=== PATIENT | female | born 1990 | race Caucasian/White ===

== ENCOUNTER 2018-04-07 13:37 | Emergency (ER) | payer OTHER ==
[2018-04-07 14:19] VITALS: BP 105/65
--- NOTE | 2018-04-07 15:04 | UC ---
Throat Pain/Nasal Baldo HPI - HPI Summary HPI Summary: 27 y/o female presents to the urgent care c/o sore throat since yesterday. Pt reports this morning sore throat has worsen, pain w/ swallowing is 6/10 associated w/ mild body aches and mild MCDONNELL. Pt has not taking anything to alleviate symptoms. Pt denies fever,rash, SOB, chest pain, abdominal pain, N/v /D. Denies Hx of tick bites. - History of Current Complaint Chief Complaint: UCRespiratory Stated Complaint: SORE THROAT,BODYACHES Time Seen by Provider: 04/07/18 15:03 Hx Obtained From: Patient Hx Last Menstrual Period: 03/14/18 Onset/Duration: Gradual Onset, Lasting Days - 1 day, Still Present, Worse Since - today Severity: Mild Pain Intensity: 6 Pain Scale Used: 0-10 Numeric Cough: None Associated Signs & Symptoms: Positive: Dysphagia. Negative: Nasal Discharge, Fever Related History: Seasonal Allergies - Epiglottits Risk Factors Epiglottis Risk Factors: Negative - Allergies/Home Medications Allergies/Adverse Reactions: Allergies Allergy/AdvReac Type Severity Reaction Status Date / Time bacitracin Allergy Rash Verified 04/07/18 14:19 [From Neosporin ([id number])] neomycin Allergy Rash Verified 04/07/18 14:19 [From Neosporin ([id number])] Penicillins Allergy Rash Verified 04/07/18 14:19 polymyxin B Allergy Rash Verified 04/07/18 14:19 [From Neosporin ([id number])] PMH/Surg Hx/FS Hx/Imm Hx Previously Healthy: Yes - Pt denies PMHX - Surgical History Surgical History: None - Family History Known Family History: Positive: Diabetes Family History: Dyslipidemia - Social History Occupation: Employed Full-time Lives: With Family Alcohol Use: Rare Substance Use Type: None Smoking Status (MU): Never Smoked Tobacco Review of Systems Constitutional: Negative, Other - body aches Skin: Negative Eyes: Negative ENT: Sore Throat, Nasal Discharge - clear Respiratory: Negative Cardiovascular: Negative Gastrointestinal: Negative Genitourinary: Negative Motor: Negative Neurovascular: Negative Musculoskeletal: Negative Neurological: Headache - mild Psychological: Negative Is Patient Immunocompromised?: No All Other Systems Reviewed And Are Negative: Yes Physical Exam - Summary Physical Exam Summary: VITAL SIGNS: Reviewed. GENERAL: Patient is a well developed and nourished female who is sitting comfortable in the examining table. Patient is not in any acute respiratory distress. HEAD AND FACE: No signs of trauma. No ecchymosis, hematomas or skull depressions. No sinus tenderness. EYES: PERRLA, EOMI x 2, No injected conjunctiva, no nystagmus. No photophobia. EARS: Hearing grossly intact. Ear canals and tympanic membranes are within normal limits. MOUTH: Positive pharynx with erythema, no exudates, palatal petechiae. Mild B/L tonsillar enlargement with no exudate. Uvula in midline. NECK: Supple, trachea is midline, Positive anterior cervical lymphadenopathy, no JVD, no carotid bruit, no c-spine tenderness, neck with full ROM. No meningeal signs, no Kernig's or brudzinskis signs. CHEST: Symmetric, no tenderness at palpation LUNGS: Clear to auscultation bilaterally. No wheezing or crackles. CVS: Regular rate and rhythm, S1 and S2 present, no murmurs or gallops appreciated. ABDOMEN: Soft, non-tender. No signs of distention. No rebound no guarding, and no masses palpated. Bowel sounds are normal. EXTREMITIES: FROM in all major joints, no edema, no cyanosis or clubbing. NEURO: Alert and oriented x 3. No acute neurological deficits. Speech is normal and follows commands. SKIN: Dry and warm Triage Information Reviewed: Yes Vital Signs: Initial Vital Signs Temp 99.1 F 04/07/18 14:12 Pulse 76 04/07/18 14:12 Resp 14 04/07/18 14:12 BP 105/65 04/07/18 14:12 Pulse Ox 100 04/07/18 14:12 Throat Pain/Nasal Course/Dx - Course Course Of Treatment: 27 y/o female presents to the urgent care c/o sore throat since yesterday. Pt reports this morning sore throat has worsen, pain w/ swallowing is 6/10 associated w/ mild body aches and mild MCDONNELL. Pt has not taking anything to alleviate symptoms. Pt denies fever,rash, SOB, chest pain, abdominal pain, N/v/D. Denies Hx of tick bites.Hx obtained. Pt w/ pharyngitis on examination. - Differential Dx/Diagnosis Differential Diagnosis/HQI/PQRI: Laryngitis, Mononucleosis, Pharyngitis, Tonsillitis, URI Provider Diagnoses: 1- Viral pharyngitis Discharge - Discharge Plan Condition: Stable Disposition: HOME Prescriptions: Ibuprofen TAB* [Motrin TAB* 600 MG] 600 mg PO Q6H PRN #20 tab PRN Reason: Sore Throat Patient Education Materials: Pharyngitis (ED) Forms: *Work Release Referrals: [facility] [place] [facility] [Outside] - 3 Days Additional Instructions: 1-Please take ibuprofen PO q6-8hrs prn as instructed after meals to alleviate pain and swelling. Increase fluid intake, eat well, rest and avoid strenuous exercise 2-If symptoms do not improve or worsen please return to the urgent care or f/u with your PCP for further evaluation and treatment. - Billing Disposition and Condition Condition: STABLE Disposition: Home
== END 2018-04-07 15:29 | disposition home or self-care (01) ==
LOC: UCEAST 13:37
DX: J02.8 Acute pharyngitis due to other specified organisms (principal); Z88.3 Allergy status to other anti-infective agents
CPT/HCPCS: 87651; 99212; G0463

== ENCOUNTER 2024-08-30 18:39 | Inpatient (IN) ==
[2024-08-30] MEDS ORDERED: Lidocaine 1% VIAL 10 MG/ML 30 ML VIAL INJ PRN (18:54)
[2024-08-30] MEDS: Dinoprostone 10 MG VAG.SUPP VAGINAL ONE (20:20)
[2024-08-30] MEDS: CETIRIZINE 10 MG PO SCH (21:14)
[2024-08-30 21:53] LABS: Urine Benzodiazepine Screen None Detected (None Detect); Urine Cannabinoids Screen None Detected (None Detect); Urine Opiates Screen None Detected (None Detect)
[2024-08-31] MEDS ORDERED: Calcium Carb (TUMS) 500 mg CHEW TAB PO PRN (08:49)
[2024-08-31] MEDS ORDERED: Ondansetron 4 mg VIAL 2 MG/ML 2 ml VIAL IV PRN (08:50)
[2024-08-31] MEDS: Lidocaine 2% JELLY 6 ML Topical TOPICAL ONE ×2 (09:02→17:40)
[2024-08-31] MEDS: Lactated Ringers 1000 ml BAG 1,000 ML IV ONE (09:45)
[2024-08-31 10:11] LABS: ABS Eosinophils 0.2 10^3/uL (0.0-0.5); ABS Lymphocytes 1.8 10^3/uL (1.0-4.8); ABS Monocytes 0.4 10^3/uL (0.0-0.9); ABS Neutrophils 5.3 10^3/uL (1.5-7.6); Eosinophil % 1.9 %; Hematocrit 33.7 % (35-45); Hemoglobin 11.4 g/dL (11.5-14.3); Lymphocyte % 23.1 %; Mean Corpuscular Volume 91.3 fL (80-97); Mean Platelet Volume 10.4 fL (7.5-11.2); Nucleated Red Blood Cells % 0.1 %/100WBC (0.0-0.8); Platelet Count 117 10^3/uL (150-450); Red Blood Count 3.69 10^6/uL (3.63-4.92); Red Cell Distribution Width 14.9 % (12-17); White Blood Count 7.7 10^3/uL (3.8-11.8)
[2024-08-31] MEDS: Oxytocin in LR 20,000 MILLI.UNIT/1,000 ML BAG IV SCH (10:35)
[2024-08-31] MEDS: Lactated Ringers 1000 ml BAG 1,000 ML IV SCH (10:45)
[2024-08-31] MEDS: Prochlorperazine 5 mg/ml 2 ml VIAL (10 mg) IV PRN (18:37)
[2024-08-31] MEDS: Nalbuphine 10 MG/ML 1 ML VIAL IV PRN (18:37)
[2024-09-01] MEDS: OBEPIDURAL (200 ML) 200 ML EPIDURAL ONE (07:45)
[2024-09-01] MEDS ORDERED: Phenylephrine 40 mcg/mL 10mL (400mcg) SYRINGE IV PUSH PRN ×2 (07:53)
[2024-09-01 09:01] LABS: Urine Appearance Clear; Urine Bilirubin Negative (Negative); Urine Blood Negative (Negative); Urine Color Colorless; Urine Glucose Negative (Negative); Urine Ketones Negative (Negative); Urine Nitrite Negative (Negative); Urine Protein Negative (Negative); Urine Specific Gravity 1.007 (1.002-1.030); Urine Urobilinogen Negative (Negative); Urine pH 6.5 (5.0-8.0)
[2024-09-01] MEDS ORDERED: ceFAZolin VIAL 2 GM in NS 0.9% 100 ml BAG 100 ML IVPB ONE (17:39)
[2024-09-01] MEDS ORDERED: Dexamethasone IV 4 MG/ML VIAL 1 ml VIAL ONE (17:47)
[2024-09-01] MEDS ORDERED: Ondansetron 4 mg VIAL 2 MG/ML 2 ml VIAL ONE (17:47)
[2024-09-01] MEDS ORDERED: Oxytocin 10 UNITS/ML 1 ML VIAL ONE (17:47)
[2024-09-01] MEDS: ceFAZolin 2 GM/50 ML BAG IV ONE (17:54)
[2024-09-01] MEDS: Sodium Citrate/Citric Acid LIQ 15 ML UDC PO PRN (17:54)
[2024-09-01] MEDS ORDERED: Morphine PF AMP (0.5MG/ML) 5 MG/10 ML AMP ONE (18:12)
[2024-09-01] MEDS ORDERED: Naloxone 0.4 mg VIAL 0.4 mg/ml 1 ml VIAL IV PUSH PRN (18:21)
[2024-09-01] MEDS ORDERED: Acetaminophen IV 1 GM/100ML 1,000 MG/100 ML BAG IV PRN (18:21)
[2024-09-01] MEDS ORDERED: Metoclopramide 5 MG/ML VIAL (10 mg) IV PRN (18:21)
[2024-09-01] MEDS ORDERED: Ondansetron 4 mg VIAL 2 MG/ML 2 ml VIAL IV PRN (18:21)
[2024-09-01] MEDS ORDERED: Phenylephrine 40 mcg/mL 10mL (400mcg) SYRINGE ONE (18:36)
[2024-09-01] MEDS ORDERED: Witch Hazel PAD JAR TOPICAL PRN (19:22)
[2024-09-01] MEDS ORDERED: Dibucaine 1% OINT 28.35 GM TUBE PR PRN (19:22)
[2024-09-01] MEDS ORDERED: Glycerin ADULT 2.4 gm SUPP PR PRN (19:22)
[2024-09-01] MEDS ORDERED: Lactated Ringers 1000 ml BAG 1,000 ML IV SCH (20:00)
[2024-09-01] MEDS: Oxytocin in LR 20,000 MILLI.UNIT/1,000 ML BAG IV SCH (20:43)
[2024-09-01] MEDS ORDERED: [UNRECOGNIZED DRUG - REMARK] PO SCH (21:00)
[2024-09-02 08:08] LABS: Hematocrit 23.5 % (35-45); Mean Corpuscular Hemoglobin 31.2 pg (27-33); Mean Corpuscular Hgb Conc 33.9 g/dL (31-36); Mean Corpuscular Volume 92.1 fL (80-97); Red Blood Count 2.55 10^6/uL (3.63-4.92); Red Cell Distribution Width 14.5 % (12-17); White Blood Count 14.8 10^3/uL (3.8-11.8)
[2024-09-02 08:26] LABS: ABS Basophils 0.1 10^3/uL (0.0-0.1); ABS Lymphocytes 1.6 10^3/uL (1.0-4.8); ABS Monocytes 0.6 10^3/uL (0.0-0.9); ABS Neutrophils 12.5 10^3/uL (1.5-7.6); Eosinophil % 0.2 %; Lymphocyte % 10.7 %; Mean Platelet Volume 10.1 fL (7.5-11.2); Platelet Count 89 10^3/uL (150-450)
[2024-09-02] MEDS: Azithromycin 500 mg/250 ml NS 500 MG/250 ML BAG IVPB ONE (14:46)
[2024-09-02] MEDS: Iron Sucrose 200 MG in NS 0.9% 100 ml BAG 100 ML IVPB ONE (14:49)
[2024-09-02] MEDS: Lactated Ringers 1000 ml BAG 1,000 ML IV SCH (19:05)
[2024-09-02] MEDS: Lidocaine 1.5% EPI 1:200,000 30 ML SDV ONE (19:06)
[2024-09-02] MEDS: Lactated Ringers 1000 ml BAG 1,000 ML IV ONE (19:06)
[2024-09-02] MEDS: OBEPIDURAL (200 ML) 200 ML EPIDURAL SCH (19:06)
[2024-09-02] MEDS: Phenylephrine 40 mcg/mL 10mL (400mcg) SYRINGE ONE (19:06)
[2024-09-02] MEDS: Buffered Lidocaine 1% SYRIN 1 ml INTRADERM ONE (19:06)
[2024-09-02] MEDS: Lidocaine 2% w/ EPI 1:200,000 MPF 20 ML SDV VIAL ONE (19:07)
[2024-09-02] MEDS: Ropivacaine (OR use only) 2 MG/ML 10 ML ONE (19:07)
[2024-09-03] MEDS: Measles, Mumps,Rubella VACC 0.5 ML/VIAL SUBCUT ONE (16:38)
[2024-09-04 07:37] VITALS: BP 117/74
== END 2024-09-04 22:00 | disposition home or self-care (01) | DRG 788 ==
LOC: MCHOBOUT 18:39 → MCHOB 18:51
PROVIDERS: ADMIT Advanced Practice Midwife; ATTEND Obstetrics & Gynecology